=== PATIENT | male | born 1990 | race Hispanic/Latino ===

== ENCOUNTER 2021-05-25 19:07 | Emergency (ER) | payer OTHER ==
[~2021-05-25] VITALS: Ht 177.8 cm; Wt 129.3 kg
== END 2021-05-25 23:12 | disposition home or self-care (01) ==
LOC: ER 19:25
DX: G51.0 Bell's palsy (principal); R51.9 Headache, unspecified; M62.82 Rhabdomyolysis
CPT/HCPCS: 70450; 99283